=== PATIENT | male | born 1965 ===

== ENCOUNTER 2019-05-29 05:52 | Day surgery (SDC) | payer MEDICARE, MEDICAID ==
--- NOTE | 2019-05-28 12:42 | Opthalmology H&P ---
Ophthalmology H&P H&P Chief Complaint: decreased vision in left eye HPI Vision Affects Ability to: read, manage personal affairs HPI Narrative Blurry Vision Exam Visual Acuity: OD 20/200 OS 20/80 Tension: OD 16 OS 16 Eye Exam: normal OU: external exam, palpebral fissure-width, marginal reflex distance, levator function, corneas, anterior chambers, fundus exam; findings: lens - subluxated lens OD , Cortical cataract OS Assessment/Plan Treatment Plan: cataract extraction w/ lens implant Goals of Treatment: improvement of vision, enhance quality of life Attestation Attestation The risks and benefits of the surgery as well as alternative procedures were explained to the patient in detail. Kavon Glover MD May 28, 2019 12:42
--- NOTE | 2019-05-28 12:44 | Pre-Procedure Note/Attestation ---
Pre-Procedure Note/Attestation Complete Prior to Procedure Planned Procedure: left Procedure Narrative: Cataract extraction with intraocular lens implant left eye Indications for Procedure Pre-Operative Diagnosis: Cortical Senile Cataract left eye Attestation I attest that I discussed the nature of the procedure; its benefits; risks and complications; and alternatives (and the risks and benefits of such alternatives ), prior to the procedure, with the patient (or the patient's legal parts sales representative). I attest that, if there was a reasonable possibility of needing a blood transfusion, the patient (or the patient's legal parts sales representative) was given the [facility] standardized written summary, pursuant to the [place] Blood Safety Act ([place] [facility] and Safety Code # 1645, as amended). I attest that I re-evaluated the patient just prior to the surgery and that there has been no change in the patient's H&P, except as documented below: Kavon Glover MD May 28, 2019 12:44
[2019-05-29] VITALS (9 sets, daily range): BP systolic 121–139; BP diastolic 83–92
[~2019-05-29] VITALS: Ht 172.7 cm; Wt 69.9 kg
[~2019-05-29 05:52] MED LIST: AMLODIPINE BESYL5 MG ORAL; ATENOLOL25 MG ORAL; NOVOLIN N100 UNIT/1 SUBQ; RENA-VITE TABL0.8 M1 PO; RENVELA800 MG ORAL; SIMVASTATIN20 MG ORAL
[2019-05-29] MEDS ORDERED: Midazolam 2mg/2ml Inj ONE (05:53)
[2019-05-29] MEDS ORDERED: fentaNYL 100 mcg/2 mL IV ONE (05:53)
[2019-05-29] MEDS: Tropicamide 1% Opth 15ml Soln LEFT EYE SCH ×3 (06:24→06:46)
[2019-05-29] MEDS: Cyclopentolate 1% Opth Sol 2ml LEFT EYE SCH ×3 (06:24→06:45)
[2019-05-29] MEDS: Tobramycin Op Soln 0.3% 5ml LEFT EYE SCH ×3 (06:24→06:45)
[2019-05-29] MEDS: Phenylephrine 10% Opth Soln 5ml LEFT EYE SCH ×3 (06:24→06:46)
[2019-05-29] MEDS: Diclofenac Sod 0.1% Op Soln LEFT EYE SCH ×3 (06:24→06:46)
[2019-05-29] MEDS ORDERED: Pred Forte 1% Opth Susp 1ml ONE (07:00)
[2019-05-29] MEDS ORDERED: DiphenhydrAMINE 50mg/ml Inj IVP PRN (07:00)
[2019-05-29] MEDS ORDERED: Tetracaine 0.5% Opth 4ml Soln LEFT EYE ONE (07:00)
[2019-05-29] MEDS ORDERED: Proparacaine 0.5% Opth Soln 15ml LEFT EYE ONE (07:00)
[2019-05-29] MEDS ORDERED: Polysporin Opth Oint 3.5gm ONE (07:00)
[2019-05-29] MEDS ORDERED: fentaNYL 100 mcg/2 mL IV PRN (07:00)
[2019-05-29] MEDS ORDERED: Midazolam 2mg/2ml Inj IVP PRN (07:00)
[2019-05-29] MEDS ORDERED: Akten 3.5% 1ml Btl LEFT EYE ONE (07:00)
[2019-05-29] MEDS ORDERED: Atropine Sulfate 0.4mg/ml inj IVP PRN (07:00)
[2019-05-29] MEDS ORDERED: Pilocarpine 1% Opth 15ml Soln ONE (07:00)
--- NOTE | 2019-05-29 07:03 | Anethesia Preoperative Eval ---
Anesthesia Pre-op PMH/ROS General Date of Evaluation: May 29, 2019 Time of Evaluation: 07:01 Anesthesiologist: gina ASA Score: ASA 4 Mallampati Score Class I : Soft palate, uvula, fauces, pillars visible Class II: Soft palate, uvula, fauces visible Class III: Soft palate, base of uvula visible Class IV: Only hard plate visible Mallampati Classification: Class II Surgeon: boubacar Diagnosis: cataract left eye Surgical Procedure: cataract extraction w/iol implant left eye Anesthesia History: none Social History: smoking - former smoker Family History: no anesthesia problems Allergies: Coded Allergies: No Known Allergies (Unverified , 05/28/19) Medications: see eMAR Patient NPO?: Yes Past Medical History Cardiovascular: Reports: HTN, other - hypercholesterolemia Gastrointestinal/Genitourinary: Reports: ESRD Endocrine: Reports: DM Anesthesia Pre-op Phys. Exam Physician Exam Last Vital Signs Date Time Temp Pulse Resp B/P (MAP) Pulse Ox O2 Delivery O2 Flow Rate FiO2 05/29/19 06:39 Room Air 05/29/19 06:30 98.4 79 18 135/88 98 Constitutional: NAD Neurologic: CN 2-12 intact Cardiovascular: RRR Respiratory: CTA Gastrointestinal: S/NT/ND Airway Exam Mallampati Score: Class II MO: limited Neck: flexible TMD: 2fb ROM: limited Anesthesia Pre-op A/P Labs Labs Test 05/29/19 06:35 Potassium Level 4.6 MMOL/L (3.5-5.1) Risk Assessment & Plan Assessment: asa4 Plan: mac Status Change Before Surgery: No Pre-Antibiotics Drug: Domonique Austin MD May 29, 2019 07:03
[2019-05-29] MEDS ORDERED: Sterile Water Irrig 1000ml IRRIG ONE (09:30)
[2019-05-29] MEDS ORDERED: NS Irrig 1000ml ONE (09:30)
--- NOTE | 2019-05-29 11:40 | Immediate Post-Op Evaluation ---
Immediate Post-Op Evalulation Immediate Post-Op Evalulation Procedure: cataract extraction w/iol implant left eye Date of Evaluation: May 29, 2019 Time of Evaluation: 10:24 IV Fluids: 300ml 0.9ns Blood Products: none Estimated Blood Loss: negligible Blood Pressure Systolic: 130 Blood Pressure Diastolic: 92 Pulse Rate: 80 Respiratory Rate: 18 O2 Sat by Pulse Oximetry: 100 Temperature (Fahrenheit): 97.9 Pain Score (1-10): 0 Nausea: No Vomiting: No Complications none Patient Status: awake, reacts, patent Hydration Status: adequate Drug: Domonique Austin MD May 29, 2019 11:40
--- NOTE | 2019-05-29 11:41 | 48 Hour Post Anesthesia Eval ---
Post Anesthesia Evaluation Procedure: cataract extraction w/iol implant left eye Date of Evaluation: May 29, 2019 Time of Evaluation: 10:26 Blood Pressure Systolic: 121 0: 83 Pulse Rate: 77 Respiratory Rate: 18 Temperature (Fahrenheit): 97.9 O2 Sat by Pulse Oximetry: 100 Airway: patent Nausea: No Vomiting: No Pain Intensity: 0 Hydration Status: adequate Cardiopulmonary Status: stable Mental Status/LOC: patient returned to baseline Post-Anesthesia Complications: none Follow-up care needed: N/A Domonique Blake MD May 29, 2019 11:41
[2019-05-29] MEDS ORDERED: EPINEPHrine 1mg/1ml Amp ONE (12:30)
[2019-05-29] MEDS ORDERED: BSS 500ml btl ONE (12:31)
[2019-05-29] MEDS ORDERED: Sodium Hyaluronate 14 mg/ml 0.85ml ONE (12:32)
[2019-05-29] MEDS ORDERED: Povidone-Iodine 5% opth solution ONE (12:32)
[2019-05-29] MEDS ORDERED: BSS 15ml BTL ONE (12:32)
[2019-05-29] MEDS ORDERED: Dexamethasone 4mg/ml vial ONE (12:33)
--- NOTE | 2019-06-01 11:34 | Brief Operative Note ---
Immediate Post Operative Note Operative Note Chief Complaint: Blurry Vision Pre-op Diagnosis: Cortical Senile Cataract left eye Procedure: Cataract extraction with intraocular lens implant left eye Post-op Diagnosis: Pseudophakia left eye Post-op Diagnosis: same as pre-op Findings: consistent w/pre-op dx studies Surgeon: Kavon Glover MD Anesthesiologist: Renetta Whipple MD Anesthesia: MAC Specimen: none Complications: none Condition: stable Fluids: LR Estimated Blood Loss: none Drains: none Implant(s) used?: Yes - IOL-OS Kavon Glover MD Jun 01, 2019 11:34
--- NOTE | 2019-06-01 11:37 | Operative Note - PDOC ---
Operative Note Operative Note Date of Operation/Procedure: May 29, 2019 Chief Complaint: Blurry Vision Pre-op Diagnosis: Cortical Senile Cataract left eye Procedure: Cataract extraction with intraocular lens implant left eye Post-op Diagnosis: Pseudophakia left eye Post-op Diagnosis: same as pre-op Operative Findings: consistent w/pre-op dx studies Surgeon: Kavon Glover MD Anesthesiologist: Renetta Whipple MD Anesthesia: MAC Specimen: none Complications: none Condition: stable Fluids: LR Estimated Blood Loss: none Drains: none Implant(s) used?: Yes - IOL-OS Indications for Procedure Cortical senile cataract left eye Description of Procedure This patient has been complaining visually significant cataract in the left eye with the best corrected visual acuity of 20/125 under moderate glare conditions worse. The patient complains of difficulties with glare in performing activities of daily living and wants to manage personal affairs with comfort and accuracy and see well enough to move with safety at home and outdoors. The risks, benefits and alternatives of the procedure were discussed with the patient in the office prior to scheduling surgery. All questions from the patient were answered after the surgical procedure was explained in detail. The risks of the procedure as explained to the patient include, but are not limited to, pain, infection, bleeding, loss of vision, retinal detachment, need for further surgery, loss of lens nucleus, double vision, etc. Alternative procedures were discussed which include, to do nothing or seek a second opinion. Informed consent for this procedure was obtained from the patient. The patient was referred to a primary care physician for a cardiopulmonary clearance prior to surgery, after proper evaluation was done patient was properly scheduled for outpatient surgery. The patient was brought to the operating room where the anesthesiologist established I.V. lines and cardiac monitoring leads. Mild intravenous sedation was administered. The patient was then prepared with a 5% solution of povidone -iodine to the conjunctival fornix and lashes, and a 5% solution of povidone- iodine to the lids and periorbital skin. The patient was then draped in the usual sterile fashion. A lid speculum was then placed in the operative eye. A keratome blade was then used to create a biplanar incision into the anterior chamber. Viscoelastics was then instilled into the anterior chamber. A capsulorrhexis was then fashioned with an utrata forceps A G 27 cannula was used to hydrodissect and hydro delineate the lens nucleus. Paracentesis incision was made at 3 o'clock with sharp blade. The phacoemulsification unit, after being properly adjusted and tested, was then used to emulsify the nucleus. Residual cortical material was aspirated with the irrigation and aspiration unit. Healon was then instilled into the anterior chamber. The corneal wound was then enlarged to the size of the optic with the gabino keratome blade. The intraocular lens was then inspected for right power and size and thought to be satisfactory. Then the lens was gently placed in the capsular bag. Positioning within the capsular bag was confirmed by direct visualization. Optic centration was accomplished with a Sinskey hook. Viscoelastics was removed from the anterior chamber using the irrigation and aspiration unit. The corneal wound was then tested for leaks and none were found. The lid speculum were then removed. Sponge and needle counts were correct. An eye patch and shield were placed over the operative eye. The patient was taken to the recovery room in stable condition. There were no complications. The patient tolerated the procedure well. The patient was then transferred to the ambulatory surgery unit in stable and satisfactory condition , was given detailed written instructions and asked to follow up in the office the next day. Kavon Glover MD Jun 01, 2019 11:37
== END 2019-05-29 11:10 | disposition home or self-care (01) ==
LOC: SUR 05:52
DX: H25.012 Cortical age-related cataract, left eye (principal); E78.00 Pure hypercholesterolemia, unspecified; I12.0 Hypertensive chronic kidney disease with stage 5 chronic kidney disease or end stage renal disease; E11.22 Type 2 diabetes mellitus with diabetic chronic kidney disease; N18.6 End stage renal disease; Z87.891 Personal history of nicotine dependence
CPT/HCPCS: 36415; 66984; 82962; 84132; J0171; J1100; J2250; J3010; J3370; V2632; 94003; 94150